=== PATIENT | male | born 1935 | race Caucasian/White ===

== ENCOUNTER 2022-09-19 12:19 | Inpatient (IN) | payer OTHER, BC ==
[2022-09-19 13:57] LABS: BASO % 0.2 % (0-2.0); EOS % 0.6 % (0-4.5); HEMATOCRIT 29.2 % (35.4-49); HEMOGLOBIN 9.2 GM/dL (11.7-16.9); LYMPH % 4.6 % (8-40); MCH 24.9 pg (25.7-33.7); MCHC 31.5 g/dl (32.0-35.9); MEAN CELL VOLUME 79.2 fl (80-96); MEAN PLT VOLUME 7.1 fl (7.5-11.1); MONO % 5.2 % (3.8-10.2); NEUT % 89.4 % (42.8-82.8); PLATELET COUNT 280 10^3/uL (134-434); RBC 3.69 M/mm3 (4.00-5.60); RDW 18.3 % (11.9-15.9); WHITE BLOOD COUNT 8.7 K/mm3 (4.0-10.0)
[2022-09-19 14:04] LABS: INR 1.85 (0.83-1.09); PROTHROMBIN TIME (PATIENT) 21.4 SEC (9.7-13.0)
[2022-09-19 14:06] LABS: ACTIVATED PTT 37.2 SECONDS (25.2-36.5)
[2022-09-19 14:21] LABS: CALCIUM 8.5 mg/dL (8.5-10.1)
[2022-09-19 14:22] LABS: BLOOD UREA NITROGEN 16.9 mg/dL (7-18)
[2022-09-19 14:25] LABS: CREATININE 0.9 mg/dL (0.55-1.3)
[2022-09-19 14:27] LABS: BILIRUBIN,TOTAL 0.6 mg/dL (0.2-1); TOT PROT 7.1 g/dl (6.4-8.2)
[2022-09-19 15:21] LABS: N-TERMINAL BNP 3351.9 pg/ml (5-450)
[2022-09-19 17:08] LABS: URINE APPEARANCE CLEAR; URINE BILIRUBIN 1+ (NEGATIVE); URINE COLOR DK YELLOW; URINE GLUCOSE (UA) NEGATIVE (NEGATIVE); URINE KETONE TRACE (NEGATIVE); URINE LEUK ESTERASE NEGATIVE (NEGATIVE); URINE NITRITE NEGATIVE (NEGATIVE); URINE PROTEIN TRACE (NEGATIVE)
[2022-09-19] MEDS ORDERED: FUROSEMIDE 40 MG/4 ML INJECTABLE VIAL IVPUSH ONE (18:36)
[2022-09-19] MEDS ORDERED: FUROSEMIDE 40 MG/4 ML INJECTABLE VIAL ONE (18:45)
[2022-09-20 06:44] LABS: CHOLESTEROL 103 mg/dL (50-200); TRIGLYCERIDES 39 mg/dL (0-150)
[2022-09-20 06:45] LABS: LDL CHOLESTEROL (ONLY SJRH) 60 mg/dL (5-100)
[2022-09-20 06:47] LABS: HDL CHOLESTEROL 38 mg/dL (40-60)
[2022-09-20 08:28] LABS: ALBUMIN 1.6 g/dl (3.4-5.0); CALCIUM 7.9 mg/dL (8.5-10.1)
[2022-09-20 08:31] LABS: CREATININE 0.7 mg/dL (0.55-1.3)
[2022-09-20 08:33] LABS: BILIRUBIN,TOTAL 0.6 mg/dL (0.2-1)
[2022-09-20] MEDS ORDERED: FUROSEMIDE 40 MG TABLET (FP) PO SCH ×2 (10:00→11:53)
[2022-09-20] MEDS ORDERED: FUROSEMIDE 40 MG TABLET (FP) ONE (10:12)
[2022-09-20] MEDS: AMPICILLIN NA/SULBACTAM NA 1.5 GM in SODIUM CHLORIDE 100 ML IVPB SCH ×2 (12:31→18:29)
[2022-09-20] MEDS: FUROSEMIDE 40 MG/4 ML INJECTABLE VIAL IVPUSH SCH (13:11)
[2022-09-20] MEDS ORDERED: ACETAMINOPHEN 325 MG TABLET (FP) ONE (16:05)
[2022-09-20] MEDS: ACETAMINOPHEN 325 MG TABLET (FP) PO PRN (16:16)
[2022-09-21] MEDS: AMPICILLIN NA/SULBACTAM NA 1.5 GM in SODIUM CHLORIDE 100 ML IVPB SCH (02:51)
[2022-09-21] MEDS: ACETAMINOPHEN 325 MG TABLET (FP) PO PRN (07:28)
[2022-09-21] MEDS ORDERED: AMPICILLIN NA/SULBACTAM NA 1.5 GM in SODIUM CHLORIDE 100 ML IVPB SCH (07:29)
[2022-09-21 08:17] LABS: HEMATOCRIT 26.7 % (35.4-49); HEMOGLOBIN 8.3 GM/dL (11.7-16.9); MCH 24.6 pg (25.7-33.7); MCHC 30.9 g/dl (32.0-35.9); MEAN CELL VOLUME 79.6 fl (80-96); MEAN PLT VOLUME 7.6 fl (7.5-11.1); PLATELET COUNT 274 10^3/uL (134-434); RBC 3.36 M/mm3 (4.00-5.60); RDW 18.6 % (11.9-15.9); WHITE BLOOD COUNT 7.3 K/mm3 (4.0-10.0)
[2022-09-21 08:32] LABS: BLOOD UREA NITROGEN 16.8 mg/dL (7-18); CALCIUM 8.1 mg/dL (8.5-10.1)
[2022-09-21 08:33] LABS: ALBUMIN 1.7 g/dl (3.4-5.0); CREATININE 0.8 mg/dL (0.55-1.3)
[2022-09-21 08:37] LABS: BILIRUBIN,TOTAL 0.6 mg/dL (0.2-1); TOT PROT 6.3 g/dl (6.4-8.2)
[2022-09-21] MEDS: FERROUS SO4 325 MG TABLET (FP) PO SCH (08:55)
[2022-09-21] MEDS: FUROSEMIDE 40 MG/4 ML INJECTABLE VIAL IVPUSH SCH (09:03)
[2022-09-21 10:43] LABS: ANISOCYTOSIS 0; MACROCYTOSIS 0
[2022-09-21] MEDS ORDERED: IRON SUCROSE INJECTION 200 MG in SODIUM CHLORIDE 90 ML IVPB ONE ×2 (16:30→17:00)
[2022-09-21] MEDS: CEFTRIAXONE 2 GM in DEXTROSE 5%-WATER 100 ML IVPB SCH (17:38)
[2022-09-21] MEDS: VANCOMYCIN/WATER FOR INJ (PEG) 1,000 MG/200 ML BAG IVPB SCH (17:38)
[2022-09-22 04:07] LABS: BASO % 0.3 % (0-2.0); EOS % 0.9 % (0-4.5); HEMATOCRIT 24.7 % (35.4-49); HEMOGLOBIN 7.8 GM/dL (11.7-16.9); LYMPH % 6.1 % (8-40); MCH 24.7 pg (25.7-33.7); MCHC 31.6 g/dl (32.0-35.9); MEAN CELL VOLUME 78.4 fl (80-96); MEAN PLT VOLUME 7.3 fl (7.5-11.1); MONO % 5.1 % (3.8-10.2); NEUT % 87.6 % (42.8-82.8); PLATELET COUNT 265 10^3/uL (134-434); RBC 3.14 M/mm3 (4.00-5.60); WHITE BLOOD COUNT 8.4 K/mm3 (4.0-10.0)
[2022-09-22 04:17] LABS: CALCIUM 7.5 mg/dL (8.5-10.1)
[2022-09-22 04:18] LABS: MAGNESIUM 1.8 mg/dL (1.8-2.4)
[2022-09-22 04:21] LABS: CREATININE 0.6 mg/dL (0.55-1.3); PHOSPHOROUS 2.8 mg/dL (2.5-4.9)
[2022-09-22] MEDS: FUROSEMIDE 40 MG/4 ML INJECTABLE VIAL IVPUSH SCH ×2 (06:36→13:33)
[2022-09-22] MEDS: METOPROLOL TARTRATE 25 MG TABLET (FP) PO SCH ×3 (06:36→21:09)
[2022-09-22 08:54] LABS: MAGNESIUM 1.9 mg/dL (1.8-2.4)
[2022-09-22 08:57] LABS: PHOSPHOROUS 2.8 mg/dL (2.5-4.9)
[2022-09-22] MEDS: FERROUS SO4 325 MG TABLET (FP) PO SCH (09:27)
[2022-09-22] MEDS: CEFTRIAXONE 2 GM in DEXTROSE 5%-WATER 100 ML IVPB SCH (09:28)
[2022-09-22] MEDS ORDERED: IRON SUCROSE INJECTION 200 MG in SODIUM CHLORIDE 90 ML IVPB ONE (10:00)
[2022-09-22 15:07] LABS: SCLERODERMA 70 AB <0.2 AI (0.0-0.9)
[2022-09-22] MEDS: VANCOMYCIN/WATER FOR INJ (PEG) 1,000 MG/200 ML BAG IVPB SCH (17:43)
[2022-09-22] MEDS: POLYETHYLENE GLYCOL (HEALTHYLAX) 3350 17 GM PACKET PO SCH (21:09)
[2022-09-22] MEDS: MAGNESIUM OXIDE 400 MG TABLET (FP) PO SCH (21:09)
[2022-09-23] MEDS: ACETAMINOPHEN 325 MG TABLET (FP) PO PRN ×2 (00:12→20:15)
[2022-09-23] MEDS: FUROSEMIDE 40 MG/4 ML INJECTABLE VIAL IVPUSH SCH ×2 (06:11→13:29)
[2022-09-23 07:50] LABS: BASO % 0.3 % (0-2.0); HEMATOCRIT 26.1 % (35.4-49); HEMOGLOBIN 8.2 GM/dL (11.7-16.9); LYMPH % 5.3 % (8-40); MCH 24.7 pg (25.7-33.7); MCHC 31.5 g/dl (32.0-35.9); MEAN CELL VOLUME 78.5 fl (80-96); MEAN PLT VOLUME 7.5 fl (7.5-11.1); MONO % 4.8 % (3.8-10.2); NEUT % 88.6 % (42.8-82.8); PLATELET COUNT 273 10^3/uL (134-434); RBC 3.33 M/mm3 (4.00-5.60); RDW 18.2 % (11.9-15.9); RETICULOCYTES 2.06 % (0.5-1.5); WHITE BLOOD COUNT 8.2 K/mm3 (4.0-10.0)
[2022-09-23 08:51] LABS: BLOOD UREA NITROGEN 17.1 mg/dL (7-18)
[2022-09-23 08:55] LABS: CREATININE 0.8 mg/dL (0.55-1.3); PHOSPHOROUS 3.4 mg/dL (2.5-4.9)
[2022-09-23] MEDS ORDERED: IRON SUCROSE INJECTION 200 MG in SODIUM CHLORIDE 90 ML IVPB ONE (10:00)
[2022-09-23] MEDS: MULTIVITAMINS (DAILY MVI) TABLET (FP) PO SCH (10:25)
[2022-09-23] MEDS: CEFTRIAXONE 2 GM in DEXTROSE 5%-WATER 100 ML IVPB SCH (10:25)
[2022-09-23] MEDS: MAGNESIUM OXIDE 400 MG TABLET (FP) PO SCH ×2 (10:25→22:01)
[2022-09-23] MEDS: METOPROLOL TARTRATE 25 MG TABLET (FP) PO SCH ×2 (10:26→21:59)
[2022-09-23] MEDS: POLYETHYLENE GLYCOL (HEALTHYLAX) 3350 17 GM PACKET PO SCH ×2 (10:26→22:01)
[2022-09-23] MEDS: FERROUS SO4 325 MG TABLET (FP) PO SCH (10:26)
[2022-09-23] MEDS: ASCORBIC ACID 250 MG TABLET (FP) PO SCH (10:26)
[2022-09-23] MEDS: VANCOMYCIN/WATER FOR INJ (PEG) 1,000 MG/200 ML BAG IVPB SCH (16:32)
[2022-09-23] MEDS ORDERED: SODIUM CHLORIDE 500 ML IV STA (22:37)
[2022-09-24] MEDS: FUROSEMIDE 40 MG/4 ML INJECTABLE VIAL IVPUSH SCH ×2 (06:49→14:05)
[2022-09-24 08:04] LABS: BASO % 0.2 % (0-2.0); EOS % 0.5 % (0-4.5); HEMATOCRIT 25.6 % (35.4-49); HEMOGLOBIN 8.1 GM/dL (11.7-16.9); LYMPH % 4.8 % (8-40); MCHC 31.8 g/dl (32.0-35.9); MEAN CELL VOLUME 78.7 fl (80-96); MEAN PLT VOLUME 7.3 fl (7.5-11.1); MONO % 5.4 % (3.8-10.2); NEUT % 89.1 % (42.8-82.8); PLATELET COUNT 275 10^3/uL (134-434); RBC 3.25 M/mm3 (4.00-5.60); RDW 18.2 % (11.9-15.9)
[2022-09-24 08:26] LABS: BLOOD UREA NITROGEN 19.1 mg/dL (7-18)
[2022-09-24 08:29] LABS: CREATININE 0.7 mg/dL (0.55-1.3); PHOSPHOROUS 2.9 mg/dL (2.5-4.9)
[2022-09-24] MEDS: METOPROLOL TARTRATE 25 MG TABLET (FP) PO SCH ×2 (10:30→23:12)
[2022-09-24] MEDS: MAGNESIUM OXIDE 400 MG TABLET (FP) PO SCH ×2 (10:30→23:12)
[2022-09-24] MEDS: POLYETHYLENE GLYCOL (HEALTHYLAX) 3350 17 GM PACKET PO SCH ×2 (10:30→23:12)
[2022-09-24] MEDS: CEFTRIAXONE 2 GM in DEXTROSE 5%-WATER 100 ML IVPB SCH (10:30)
[2022-09-24] MEDS: FERROUS SO4 325 MG TABLET (FP) PO SCH (10:30)
[2022-09-24] MEDS: MULTIVITAMINS (DAILY MVI) TABLET (FP) PO SCH (10:30)
[2022-09-24] MEDS: ASCORBIC ACID 250 MG TABLET (FP) PO SCH (10:30)
[2022-09-24] MEDS: ACETAMINOPHEN 325 MG TABLET (FP) PO PRN (11:38)
[2022-09-24] MEDS: VANCOMYCIN/WATER FOR INJ (PEG) 1,000 MG/200 ML BAG IVPB SCH (16:34)
[2022-09-24] MEDS: ZINC OXIDE/PANTHENOL/VITAMIN E 56 GM TUBE TP SCH ×2 (16:35→17:07)
[2022-09-24 21:26] VITALS: BMI 22.6
[2022-09-24] MEDS: MELATONIN 5 MG TABLETS PO SCH (23:12)
[2022-09-25] MEDS: MELATONIN 5 MG TABLETS PO SCH ×2 (00:22→21:58)
[2022-09-25] MEDS: FUROSEMIDE 40 MG/4 ML INJECTABLE VIAL IVPUSH SCH ×2 (05:50→13:07)
[2022-09-25] MEDS ORDERED: INSULIN (NOVOLOG) ASPART 100 UNITS/ML 10ML VIAL ONE (07:04)
[2022-09-25 07:46] LABS: BASO % 0.4 % (0-2.0); EOS % 0.3 % (0-4.5); HEMATOCRIT 26.1 % (35.4-49); HEMOGLOBIN 8.3 GM/dL (11.7-16.9); LYMPH % 5.3 % (8-40); MCH 25.2 pg (25.7-33.7); MCHC 31.8 g/dl (32.0-35.9); MEAN CELL VOLUME 79.2 fl (80-96); MEAN PLT VOLUME 7.3 fl (7.5-11.1); MONO % 5.3 % (3.8-10.2); NEUT % 88.7 % (42.8-82.8); PLATELET COUNT 276 10^3/uL (134-434); RBC 3.29 M/mm3 (4.00-5.60); RDW 18.3 % (11.9-15.9)
[2022-09-25 07:57] LABS: ALBUMIN 1.6 g/dl (3.4-5.0)
[2022-09-25 08:02] LABS: BILIRUBIN,TOTAL 0.6 mg/dL (0.2-1); CREATININE 0.7 mg/dL (0.55-1.3); PHOSPHOROUS 2.7 mg/dL (2.5-4.9)
[2022-09-25] MEDS: MAGNESIUM OXIDE 400 MG TABLET (FP) PO SCH ×2 (09:41→21:59)
[2022-09-25] MEDS: FERROUS SO4 325 MG TABLET (FP) PO SCH (09:41)
[2022-09-25] MEDS: MULTIVITAMINS (DAILY MVI) TABLET (FP) PO SCH (09:41)
[2022-09-25] MEDS: ASCORBIC ACID 250 MG TABLET (FP) PO SCH (09:41)
[2022-09-25] MEDS: METOPROLOL TARTRATE 25 MG TABLET (FP) PO SCH ×2 (09:41→21:59)
[2022-09-25] MEDS: POLYETHYLENE GLYCOL (HEALTHYLAX) 3350 17 GM PACKET PO SCH ×2 (09:41→21:58)
[2022-09-25] MEDS: CEFTRIAXONE 2 GM in DEXTROSE 5%-WATER 100 ML IVPB SCH (09:42)
[2022-09-25] MEDS ORDERED: PEG 3350/NA SULF BICARB CL/KCL 4000 ML SOLN.RECON PO ONE (11:22)
[2022-09-25] MEDS ORDERED: PHYTONADIONE 10 MG/1 ML AMP IVPB ONE (11:23)
[2022-09-25] MEDS: ZINC OXIDE/PANTHENOL/VITAMIN E 56 GM TUBE TP SCH (15:02)
[2022-09-25] MEDS ORDERED: BISACODYL 5 MG TABLET.DR (FP) PO ONE (20:00)
[2022-09-26 07:30] LABS: BASO % 0.3 % (0-2.0); EOS % 0.1 % (0-4.5); HEMATOCRIT 27.5 % (35.4-49); HEMOGLOBIN 8.8 GM/dL (11.7-16.9); LYMPH % 5.2 % (8-40); MCH 24.8 pg (25.7-33.7); MCHC 31.8 g/dl (32.0-35.9); MEAN PLT VOLUME 7.7 fl (7.5-11.1); MONO % 5.1 % (3.8-10.2); NEUT % 89.3 % (42.8-82.8); PLATELET COUNT 328 10^3/uL (134-434); RBC 3.53 M/mm3 (4.00-5.60); RDW 18.5 % (11.9-15.9); WHITE BLOOD COUNT 8.3 K/mm3 (4.0-10.0)
[2022-09-26 07:38] LABS: INR 1.78 (0.83-1.09); PROTHROMBIN TIME (PATIENT) 20.5 SEC (9.7-13.0)
[2022-09-26 07:54] LABS: TOT PROT 5.9 g/dl (6.4-8.2)
[2022-09-26 07:57] LABS: BLOOD UREA NITROGEN 18.6 mg/dL (7-18); CALCIUM 7.7 mg/dL (8.5-10.1); CREATININE 0.7 mg/dL (0.55-1.3); PHOSPHOROUS 3.1 mg/dL (2.5-4.9)
[2022-09-26 07:58] LABS: ALBUMIN 1.6 g/dl (3.4-5.0)
[2022-09-26 07:59] LABS: BILIRUBIN,TOTAL 0.6 mg/dL (0.2-1)
[2022-09-26] MEDS: POLYETHYLENE GLYCOL (HEALTHYLAX) 3350 17 GM PACKET PO SCH ×2 (09:35→21:00)
[2022-09-26] MEDS: MULTIVITAMINS (DAILY MVI) TABLET (FP) PO SCH (09:36)
[2022-09-26] MEDS: ASCORBIC ACID 250 MG TABLET (FP) PO SCH (09:36)
[2022-09-26] MEDS: FERROUS SO4 325 MG TABLET (FP) PO SCH (09:36)
[2022-09-26] MEDS: MAGNESIUM OXIDE 400 MG TABLET (FP) PO SCH ×2 (09:37→21:01)
[2022-09-26] MEDS: METOPROLOL TARTRATE 25 MG TABLET (FP) PO SCH ×2 (09:37→21:01)
[2022-09-26] MEDS ORDERED: CEPHALEXIN MONOHYDRATE 500 MG CAPSULE (UD) PO SCH (10:00)
[2022-09-26] MEDS ORDERED: FUROSEMIDE 40 MG TABLET (FP) PO SCH (10:00)
[2022-09-26 10:01] LABS: HEMATOCRIT 26.3 % (35.4-49); HEMOGLOBIN 8.5 GM/dL (11.7-16.9); MCH 25.4 pg (25.7-33.7); MCHC 32.2 g/dl (32.0-35.9); MEAN CELL VOLUME 78.9 fl (80-96); MEAN PLT VOLUME 7.3 fl (7.5-11.1); PLATELET COUNT 293 10^3/uL (134-434); RBC 3.33 M/mm3 (4.00-5.60); RDW 18.7 % (11.9-15.9); WHITE BLOOD COUNT 8.5 K/mm3 (4.0-10.0)
[2022-09-26 10:59] LABS: RETICULOCYTES 1.57 % (0.5-1.5)
[2022-09-26] MEDS ORDERED: TETRACAINE/BENZOCAINE/BUTAMBEN 20 GM SPR TP ONE (14:09)
[2022-09-26] MEDS: ZINC OXIDE/PANTHENOL/VITAMIN E 56 GM TUBE TP SCH (15:33)
[2022-09-26] MEDS ORDERED: POTASSIUM CHLORIDE ORAL LIQUID 20 MEQ/15 ML PO ONE (16:45)
[2022-09-26] MEDS ORDERED: ACETAMINOPHEN 325 MG TABLET (FP) PO PRN (19:27)
[2022-09-26] MEDS: MELATONIN 5 MG TABLETS PO SCH (21:00)
[2022-09-26] MEDS: CEPHALEXIN MONOHYDRATE 500 MG CAPSULE (UD) PO SCH (21:01)
[2022-09-27] MEDS: FERROUS SO4 325 MG TABLET (FP) PO SCH (08:41)
[2022-09-27] MEDS: POLYETHYLENE GLYCOL (HEALTHYLAX) 3350 17 GM PACKET PO SCH ×2 (09:47→21:38)
[2022-09-27] MEDS: FUROSEMIDE 40 MG TABLET (FP) PO SCH (09:48)
[2022-09-27] MEDS: CEPHALEXIN MONOHYDRATE 500 MG CAPSULE (UD) PO SCH ×2 (09:48→21:37)
[2022-09-27] MEDS: MAGNESIUM OXIDE 400 MG TABLET (FP) PO SCH ×2 (09:48→21:37)
[2022-09-27] MEDS: METOPROLOL TARTRATE 25 MG TABLET (FP) PO SCH ×2 (09:48→21:38)
[2022-09-27] MEDS: MULTIVITAMINS (DAILY MVI) TABLET (FP) PO SCH (09:48)
[2022-09-27] MEDS: ASCORBIC ACID 250 MG TABLET (FP) PO SCH (09:48)
[2022-09-27] MEDS: ZINC OXIDE/PANTHENOL/VITAMIN E 56 GM TUBE TP SCH ×2 (09:48→21:38)
[2022-09-27 11:08] LABS: HEMATOCRIT 27.2 % (35.4-49); HEMOGLOBIN 8.6 GM/dL (11.7-16.9); MCH 25.1 pg (25.7-33.7); MCHC 31.7 g/dl (32.0-35.9); MEAN CELL VOLUME 79.2 fl (80-96); MEAN PLT VOLUME 7.3 fl (7.5-11.1); PLATELET COUNT 327 10^3/uL (134-434); RBC 3.44 M/mm3 (4.00-5.60); WHITE BLOOD COUNT 10.5 K/mm3 (4.0-10.0)
[2022-09-27 11:29] LABS: CALCIUM 8.1 mg/dL (8.5-10.1)
[2022-09-27 11:30] LABS: ALBUMIN 1.5 g/dl (3.4-5.0); BLOOD UREA NITROGEN 18.4 mg/dL (7-18); MAGNESIUM 2.1 mg/dL (1.8-2.4)
[2022-09-27 11:33] LABS: CREATININE 0.8 mg/dL (0.55-1.3); PHOSPHOROUS 2.2 mg/dL (2.5-4.9)
[2022-09-27 11:34] LABS: BILIRUBIN,TOTAL 0.5 mg/dL (0.2-1); TOT PROT 5.8 g/dl (6.4-8.2)
[2022-09-27] MEDS ORDERED: NAPH,MB-DB/K PH,MBDB POWDER PACKET PO ONE (12:55)
[2022-09-27] MEDS: DOCUSATE SODIUM 100 MG CAPSULE (FP) PO SCH (21:37)
[2022-09-27] MEDS: MELATONIN 5 MG TABLETS PO SCH (21:37)
[2022-09-28] MEDS ORDERED: PATIENT'S OWN MEDICATION (NON-FORMULARY) (Mirabegron [Myrbetriq] 25 MG Tab.Er.24h) PO SCH (10:00)
[2022-09-28] MEDS: METOPROLOL TARTRATE 25 MG TABLET (FP) PO SCH ×3 (11:29→21:32)
[2022-09-28] MEDS: MULTIVITAMINS (DAILY MVI) TABLET (FP) PO SCH (11:29)
[2022-09-28] MEDS: ASCORBIC ACID 250 MG TABLET (FP) PO SCH (11:29)
[2022-09-28] MEDS: TAMSULOSIN HCL 0.4 MG CAP PO SCH (11:29)
[2022-09-28] MEDS: FERROUS SO4 325 MG TABLET (FP) PO SCH (11:29)
[2022-09-28] MEDS: MAGNESIUM OXIDE 400 MG TABLET (FP) PO SCH ×2 (11:29→21:11)
[2022-09-28 11:30] LABS: HEMATOCRIT 25.8 % (35.4-49); HEMOGLOBIN 8.2 GM/dL (11.7-16.9); MCH 25.1 pg (25.7-33.7); MCHC 31.7 g/dl (32.0-35.9); MEAN CELL VOLUME 79.2 fl (80-96); MEAN PLT VOLUME 7.2 fl (7.5-11.1); PLATELET COUNT 273 10^3/uL (134-434); RBC 3.26 M/mm3 (4.00-5.60); RDW 18.8 % (11.9-15.9); WHITE BLOOD COUNT 10.5 K/mm3 (4.0-10.0)
[2022-09-28] MEDS: FUROSEMIDE 40 MG TABLET (FP) PO SCH ×2 (11:30→13:30)
[2022-09-28] MEDS: CEPHALEXIN MONOHYDRATE 500 MG CAPSULE (UD) PO SCH (11:30)
[2022-09-28] MEDS: POLYETHYLENE GLYCOL (HEALTHYLAX) 3350 17 GM PACKET PO SCH ×2 (11:30→21:11)
[2022-09-28] MEDS: ENOXAPARIN NA (PORCINE) 40 MG/0.4 ML DISP.SYRIN SQ SCH (11:30)
[2022-09-28 11:34] LABS: ALBUMIN 1.5 g/dl (3.4-5.0); MAGNESIUM 2.1 mg/dL (1.8-2.4)
[2022-09-28 11:36] LABS: URIC ACID 3.3 mg/dL (2.6-7.2)
[2022-09-28 11:37] LABS: CREATININE 0.7 mg/dL (0.55-1.3); PHOSPHOROUS 2.6 mg/dL (2.5-4.9)
[2022-09-28 11:38] LABS: BILIRUBIN,TOTAL 0.4 mg/dL (0.2-1); TOT PROT 5.8 g/dl (6.4-8.2)
[2022-09-28 13:01] LABS: ANISOCYTOSIS 1+; MACROCYTOSIS 1+
[2022-09-28] MEDS: DOCUSATE SODIUM 100 MG CAPSULE (FP) PO SCH (21:11)
[2022-09-28] MEDS: MELATONIN 5 MG TABLETS PO SCH (21:11)
[2022-09-28] MEDS: ZINC OXIDE/PANTHENOL/VITAMIN E 56 GM TUBE TP SCH (21:11)
[2022-09-29] MEDS: TAMSULOSIN HCL 0.4 MG CAP PO SCH (09:12)
[2022-09-29] MEDS: FERROUS SO4 325 MG TABLET (FP) PO SCH (09:12)
[2022-09-29 09:40] LABS: HEMATOCRIT 27.2 % (35.4-49); HEMOGLOBIN 8.5 GM/dL (11.7-16.9); MCH 24.9 pg (25.7-33.7); MCHC 31.5 g/dl (32.0-35.9); MEAN CELL VOLUME 79.3 fl (80-96); PLATELET COUNT 258 10^3/uL (134-434); RBC 3.43 M/mm3 (4.00-5.60); RDW 18.9 % (11.9-15.9); WHITE BLOOD COUNT 9.8 K/mm3 (4.0-10.0)
[2022-09-29] MEDS: MULTIVITAMINS (DAILY MVI) TABLET (FP) PO SCH (09:45)
[2022-09-29] MEDS: MAGNESIUM OXIDE 400 MG TABLET (FP) PO SCH (09:46)
[2022-09-29] MEDS: POLYETHYLENE GLYCOL (HEALTHYLAX) 3350 17 GM PACKET PO SCH (09:46)
[2022-09-29] MEDS: ENOXAPARIN NA (PORCINE) 40 MG/0.4 ML DISP.SYRIN SQ SCH ×2 (09:46→09:51)
[2022-09-29] MEDS: ASCORBIC ACID 250 MG TABLET (FP) PO SCH (09:46)
[2022-09-29] MEDS: METOPROLOL TARTRATE 25 MG TABLET (FP) PO SCH ×2 (09:46→21:23)
[2022-09-29 10:07] LABS: MAGNESIUM 2.1 mg/dL (1.8-2.4)
[2022-09-29 10:08] LABS: CALCIUM 8.2 mg/dL (8.5-10.1)
[2022-09-29 10:09] LABS: ALBUMIN 1.5 g/dl (3.4-5.0)
[2022-09-29 10:11] LABS: CREATININE 0.7 mg/dL (0.55-1.3)
[2022-09-29 10:12] LABS: PHOSPHOROUS 3.2 mg/dL (2.5-4.9); TOT PROT 6.1 g/dl (6.4-8.2)
[2022-09-29 10:13] LABS: BILIRUBIN,TOTAL 0.6 mg/dL (0.2-1)
[2022-09-29 10:15] LABS: ANISOCYTOSIS 1+; MACROCYTOSIS 0
[2022-09-29] MEDS ORDERED: POLYETHYLENE GLYCOL (HEALTHYLAX) 3350 17 GM PACKET PO PRN (18:57)
[2022-09-29] MEDS ORDERED: ZOLPIDEM TARTRATE 5 MG TABLET PO PRN (18:57)
[2022-09-29] MEDS: DOCUSATE SODIUM 100 MG CAPSULE (FP) PO PRN (21:23)
[2022-09-29] MEDS: MELATONIN 5 MG TABLETS PO SCH (21:23)
[2022-09-30] MEDS: ZINC OXIDE/PANTHENOL/VITAMIN E 56 GM TUBE TP SCH ×2 (02:28→23:03)
[2022-09-30] MEDS: TAMSULOSIN HCL 0.4 MG CAP PO SCH (08:08)
[2022-09-30] MEDS: FERROUS SO4 325 MG TABLET (FP) PO SCH (08:08)
[2022-09-30] MEDS: METOPROLOL TARTRATE 25 MG TABLET (FP) PO SCH ×2 (09:57→23:02)
[2022-09-30] MEDS: MULTIVITAMINS (DAILY MVI) TABLET (FP) PO SCH (09:58)
[2022-09-30] MEDS: ENOXAPARIN NA (PORCINE) 40 MG/0.4 ML DISP.SYRIN SQ SCH (09:58)
[2022-09-30] MEDS: ASCORBIC ACID 250 MG TABLET (FP) PO SCH (09:58)
[2022-09-30] MEDS: MELATONIN 5 MG TABLETS PO SCH (23:01)
[2022-09-30] MEDS: DOCUSATE SODIUM 100 MG CAPSULE (FP) PO PRN (23:01)
[2022-10-01] MEDS: FERROUS SO4 325 MG TABLET (FP) PO SCH (08:43)
[2022-10-01] MEDS: TAMSULOSIN HCL 0.4 MG CAP PO SCH (08:43)
[2022-10-01] MEDS ORDERED: oxyCODONE HCL 5 MG TABLET PO PRN (09:06)
[2022-10-01] MEDS: LIDOCAINE 5% TOPICAL PATCH TP SCH (09:48)
[2022-10-01] MEDS: ENOXAPARIN NA (PORCINE) 40 MG/0.4 ML DISP.SYRIN SQ SCH (09:48)
[2022-10-01] MEDS: MULTIVITAMINS (DAILY MVI) TABLET (FP) PO SCH (09:48)
[2022-10-01] MEDS: ASCORBIC ACID 250 MG TABLET (FP) PO SCH (09:48)
[2022-10-01] MEDS: ACETAMINOPHEN 500 MG TABLET (FP) PO SCH ×2 (14:43→21:54)
[2022-10-01] MEDS: MELATONIN 5 MG TABLETS PO SCH (21:54)
[2022-10-01] MEDS: LIDOCAINE PATCH REMOVAL MC SCH (22:39)
[2022-10-01] MEDS: ZINC OXIDE/PANTHENOL/VITAMIN E 56 GM TUBE TP SCH (22:39)
[2022-10-02] MEDS: ACETAMINOPHEN 500 MG TABLET (FP) PO SCH ×3 (04:43→22:41)
[2022-10-02] MEDS: TAMSULOSIN HCL 0.4 MG CAP PO SCH (09:10)
[2022-10-02] MEDS: ENOXAPARIN NA (PORCINE) 40 MG/0.4 ML DISP.SYRIN SQ SCH (09:10)
[2022-10-02] MEDS: MULTIVITAMINS (DAILY MVI) TABLET (FP) PO SCH (09:10)
[2022-10-02] MEDS: ASCORBIC ACID 250 MG TABLET (FP) PO SCH (09:10)
[2022-10-02] MEDS: LIDOCAINE 5% TOPICAL PATCH TP SCH (09:11)
[2022-10-02] MEDS: ZINC OXIDE/PANTHENOL/VITAMIN E 56 GM TUBE TP SCH (20:30)
[2022-10-02] MEDS: oxyCODONE HCL 5 MG TABLET PO PRN (20:59)
[2022-10-02] MEDS: LORazepam 1 MG TABLET PO PRN (22:39)
[2022-10-02] MEDS: MELATONIN 5 MG TABLETS PO SCH (22:39)
[2022-10-02] MEDS: LIDOCAINE PATCH REMOVAL MC SCH (22:42)
[2022-10-03] MEDS: ACETAMINOPHEN 500 MG TABLET (FP) PO SCH (05:29)
[2022-10-03] MEDS: TAMSULOSIN HCL 0.4 MG CAP PO SCH (08:54)
[2022-10-03] MEDS: MULTIVITAMINS (DAILY MVI) TABLET (FP) PO SCH (10:40)
[2022-10-03] MEDS: LORazepam 1 MG TABLET PO PRN (10:40)
[2022-10-03] MEDS: ENOXAPARIN NA (PORCINE) 40 MG/0.4 ML DISP.SYRIN SQ SCH (10:41)
[2022-10-03] MEDS: LIDOCAINE 5% TOPICAL PATCH TP SCH (10:41)
[2022-10-03] MEDS: ASCORBIC ACID 250 MG TABLET (FP) PO SCH (10:41)
[2022-10-03] MEDS: ACETAMINOPHEN 1000 MG/100 ML BAG IVPB SCH ×3 (11:58→17:44)
[2022-10-03] MEDS ORDERED: diphenhydrAMINE HCL 25 MG CAPSULE (FP) PO ONE (20:53)
[2022-10-03] MEDS: ZINC OXIDE/PANTHENOL/VITAMIN E 56 GM TUBE TP SCH (21:59)
[2022-10-03] MEDS: POLYETHYLENE GLYCOL (HEALTHYLAX) 3350 17 GM PACKET PO SCH (21:59)
[2022-10-03] MEDS: SENNOSIDES 8.6MG TABLET (FP) PO SCH (22:00)
[2022-10-03] MEDS: MELATONIN 5 MG TABLETS PO SCH (22:00)
[2022-10-03] MEDS: LIDOCAINE PATCH REMOVAL MC SCH (22:00)
[2022-10-04] MEDS: ACETAMINOPHEN 1000 MG/100 ML BAG IVPB SCH ×2 (01:12→10:19)
[2022-10-04] MEDS: TAMSULOSIN HCL 0.4 MG CAP PO SCH (08:10)
[2022-10-04] MEDS: MULTIVITAMINS (DAILY MVI) TABLET (FP) PO SCH (10:18)
[2022-10-04] MEDS: ASCORBIC ACID 250 MG TABLET (FP) PO SCH (10:18)
[2022-10-04] MEDS: SENNOSIDES 8.6MG TABLET (FP) PO SCH ×2 (10:18→21:09)
[2022-10-04] MEDS: ENOXAPARIN NA (PORCINE) 40 MG/0.4 ML DISP.SYRIN SQ SCH (10:18)
[2022-10-04] MEDS: POLYETHYLENE GLYCOL (HEALTHYLAX) 3350 17 GM PACKET PO SCH ×2 (10:19→21:09)
[2022-10-04] MEDS: LIDOCAINE 5% TOPICAL PATCH TP SCH (10:20)
[2022-10-04] MEDS: ZINC OXIDE/PANTHENOL/VITAMIN E 56 GM TUBE TP SCH ×2 (20:29→21:26)
[2022-10-04] MEDS: MELATONIN 5 MG TABLETS PO SCH (21:09)
[2022-10-04] MEDS: LIDOCAINE PATCH REMOVAL MC SCH (21:27)
[2022-10-04] MEDS ORDERED: ACETAMINOPHEN 325 MG TABLET (FP) PO ONE (21:32)
[2022-10-04] MEDS ORDERED: QUEtiapine FUMARATE 25 MG TABLET PO SCH (22:00)
[2022-10-05] MEDS ORDERED: morphine SULFATE 4 MG/ML VIAL IVPUSH SCH (02:28)
[2022-10-05 06:34] VITALS: BP 122/79; PULSE 98; RESP 20; TEMP 98.7
[2022-10-05] MEDS: TAMSULOSIN HCL 0.4 MG CAP PO SCH (08:33)
[2022-10-05] MEDS: oxyCODONE HCL 5 MG TABLET PO PRN (08:47)
[2022-10-05] MEDS ORDERED: HALOPERIDOL LACTATE 5 MG/ML IM ONE ×2 (09:07)
[2022-10-05] MEDS ORDERED: MORPHINE SULFATE/0.9% NACL/PF 100 MG/100 ML BAG IVPB SCH (09:15)
[2022-10-05] MEDS: ENOXAPARIN NA (PORCINE) 40 MG/0.4 ML DISP.SYRIN SQ SCH (09:20)
[2022-10-05] MEDS: SENNOSIDES 8.6MG TABLET (FP) PO SCH (09:30)
[2022-10-05] MEDS: ASCORBIC ACID 250 MG TABLET (FP) PO SCH (09:30)
[2022-10-05] MEDS: POLYETHYLENE GLYCOL (HEALTHYLAX) 3350 17 GM PACKET PO SCH (09:30)
[2022-10-05] MEDS: MULTIVITAMINS (DAILY MVI) TABLET (FP) PO SCH (09:30)
[2022-10-05] MEDS: LIDOCAINE 5% TOPICAL PATCH TP SCH (09:30)
[2022-10-05] MEDS ORDERED: HALOPERIDOL 1 MG TABLET PO ONE (12:30)
== END 2022-10-05 14:04 | disposition hospice, inpatient (51) | DRG 292 ==
LOC: JER 12:19 → JERBED 14:05 → J4W 09-20 17:28 → J5S 09-26 11:06
PROVIDERS: ADMIT Internal Medicine; ATTEND Internal Medicine
PROC: 0DB98ZX Excision of Duodenum, Via Natural or Artificial Opening Endoscopic, Diagnostic (ICD-10-PCS; 2022-09-26)
PROC: 0DD68ZX Extraction of Stomach, Via Natural or Artificial Opening Endoscopic, Diagnostic (ICD-10-PCS; 2022-09-26)
PROC: 0DBL8ZX Excision of Transverse Colon, Via Natural or Artificial Opening Endoscopic, Diagnostic (ICD-10-PCS; 2022-09-26)
PROC: 0W3P8ZZ Control Bleeding in Gastrointestinal Tract, Via Natural or Artificial Opening Endoscopic (ICD-10-PCS; principal; 2022-09-26 13:15)
DX: I50.33 Acute on chronic diastolic (congestive) heart failure (principal); I31.39 Other pericardial effusion (noninflammatory); K92.1 Melena; L03.116 Cellulitis of left lower limb; L03.115 Cellulitis of right lower limb; I47.20 Ventricular tachycardia, unspecified; I48.0 Paroxysmal atrial fibrillation; C61 Malignant neoplasm of prostate; M35.3 Polymyalgia rheumatica; R60.9 Edema, unspecified; D50.9 Iron deficiency anemia, unspecified; K59.00 Constipation, unspecified; N39.490 Overflow incontinence; E87.6 Hypokalemia; E83.39 Other disorders of phosphorus metabolism; D13.2 Benign neoplasm of duodenum; K29.50 Unspecified chronic gastritis without bleeding; K44.9 Diaphragmatic hernia without obstruction or gangrene; K64.8 Other hemorrhoids; K57.90 Diverticulosis of intestine, part unspecified, without perforation or abscess without bleeding
CPT/HCPCS: 0241U-QW; 36415; 71045-TC-FY; 71046-TC-FY; 71250-TC; 73502-TC-RT-FY; 74177-TC; 80048; 80053; 80061; 81003; 82272; 82438; 82533; 82550; 82607; 82710; 82728; 82746; 83010; 83540; 83550; 83615; 83735; 83880; 84100; 84134; 84153; 84302; 84443; 84466; 84484; 84550; 84999; 85025; 85027; 85045; 85610; 85651; 85730; 86038; 86140; 86235; 86850; 86900; 86901; 87040; 87045; 87046; 87081; 87086; 87205; 87209; 88300-TC; 88305-TC; 93005; 93010; 93306-TC; 93971-TC; 94010; 97116-GP; 97162-GP; 99285-25; C9803-CS; G0480; J1756; U0003; U0005